=== PATIENT | female | born 1945 | race Asian ===

== ENCOUNTER 2016-11-21 09:06 | Day surgery (SDC) | payer MEDICARE, MEDICAID ==
[~2016-11-21] VITALS: Ht 144.8 cm; Wt 81.0 kg
[2016-11-21] MEDS ORDERED: MIDAZOLAM 1 MG/ML, 2ML ONE (09:33)
[2016-11-21] MEDS ORDERED: FENTANYL PF 250 MCG/5ML ONE (09:33)
[2016-11-21] MEDS ORDERED: LACTATED RINGERS 1,000 ML IV SCH (09:41)
[2016-11-21] MEDS ORDERED: BUPIVACAINE/PF-EPI 0.25% 1:200K ONE (09:51)
[2016-11-21 10:05] VITALS: BP 153/92
[2016-11-21] MEDS ORDERED: GLYCOPYRROLATE 0.2MG/1ML ONE (10:08)
[2016-11-21] MEDS ORDERED: DEXAMETHASONE 4 MG/ML, 1ML ONE (10:08)
[2016-11-21] MEDS ORDERED: ONDANSETRON 2MG/ML, 2ML ONE (10:08)
[2016-11-21] MEDS ORDERED: ROCURONIUM 10 MG/ML ONE (10:08)
[2016-11-21] MEDS ORDERED: PROPOFOL 10 MG/ML, 20ML ONE (10:08)
[2016-11-21] MEDS ORDERED: NEOSTIGMINE 1 MG/ML, 10ML ONE (10:08)
[2016-11-21] MEDS ORDERED: CEFAZOLIN 1,000 MG ONE (10:08)
[2016-11-21] MEDS ORDERED: METF100010 PO (10:12)
[2016-11-21] MEDS ORDERED: OLME1TAB44 PO (10:12)
[2016-11-21] MEDS ORDERED: ESCI20TA PO (10:12)
[2016-11-21] MEDS ORDERED: SIMV40TA3 PO (10:12)
[2016-11-21] MEDS ORDERED: ALBUTEROL/IPRATROPIUM 2.5MG/0.5MG, 3 ML NPPB PRN (11:00)
[2016-11-21] MEDS ORDERED: ONDANSETRON 2MG/ML, 2ML IVPush PRN (11:00)
[2016-11-21] MEDS ORDERED: PROMETHAZINE 25 MG/ML, 1ML IV PRN (11:00)
[2016-11-21] MEDS ORDERED: MIDAZOLAM 1 MG/ML, 2ML IV PRN (11:00)
[2016-11-21] MEDS ORDERED: HYDROmorphone 1 MG/ML, 1ML IV PRN (11:00)
[2016-11-21] MEDS ORDERED: MEPERIDINE/PF 25MG/0.5ML IVPush PRN (11:00)
[2016-11-21] MEDS ORDERED: LABETALOL 5MG/ML, 20ML IV PRN (11:00)
[2016-11-21] MEDS ORDERED: hydrALAzine 20 MG/ML, 1ML IV PRN (11:00)
[2016-11-21] MEDS ORDERED: OXYcodone 5 MG/5 ML ORAL.SOL UDC PO PRN (11:00)
[2016-11-21] MEDS ORDERED: ACETAMINOPHEN 325 MG TABLET PO PRN (11:00)
[2016-11-21] MEDS ORDERED: FENTANYL PF 100 MCG/2ML ONE (11:13)
[2016-11-21] MEDS ORDERED: OXYcodone 5 MG/5 ML ORAL.SOL UDC ONE (11:13)
[2016-11-21] MEDS: FENTANYL PF 100 MCG/2ML IV PRN ×2 (11:43→11:50)
== END 2016-11-21 17:00 | disposition home or self-care (01) ==
LOC: OUT 09:06
PROVIDERS: ATTEND Surgery
DX: K80.10 Calculus of gallbladder with chronic cholecystitis without obstruction (principal); E11.9 Type 2 diabetes mellitus without complications; E78.5 Hyperlipidemia, unspecified; E66.9 Obesity, unspecified; I10 Essential (primary) hypertension; Z87.891 Personal history of nicotine dependence; Z68.38 Body mass index [BMI] 38.0-38.9, adult
CPT/HCPCS: 47562; 82962; 88304; 93005; J0690; J1100; J2250; J2405; J2704; J2710; J3010; J7120; J3490